=== PATIENT | male | born 1985 | race Two or more races ===

== ENCOUNTER 2017-11-26 20:26 | Emergency (ER) | payer OTHER ==
[~2017-11-26] VITALS: Ht 177.8 cm; Wt 68.0 kg
[~2017-11-26 20:26] MED LIST: ACID REDUCER 1150 MG PO; FAMO40 PO; IBUP600 PO; METPRE4DP PO; OXYACE5T PO; PROM25 PO; Prednisone10 MG PO; Prednisone20 MG PO; RANI150 PO; SUCR1 PO; Ultram50 MG PO; [UNRECOGNIZED DRUG - REMARK]
[2017-11-26] MEDS ORDERED: Vibramycin100 MG PO (22:58)
== END 2017-11-26 23:06 | disposition home or self-care (01) ==
LOC: ER 20:26
DX: S92.331A Displaced fracture of third metatarsal bone, right foot, initial encounter for closed fracture (principal); Z23 Encounter for immunization; F17.200 Nicotine dependence, unspecified, uncomplicated; Z88.1 Allergy status to other antibiotic agents; W22.8XXA Striking against or struck by other objects, initial encounter
CPT/HCPCS: 73630; 90471; 90714; 99283

== ENCOUNTER 2019-08-02 11:04 | Day surgery (SDC) | payer OTHER ==
[~2019-08-02] VITALS: Ht 175.3 cm; Wt 67.6 kg
[~2019-08-02 11:04] MED LIST changes: +KETO10 PO; +TRAM50 PO; +Vibramycin100 MG PO
== END 2019-08-02 14:25 | disposition home or self-care (01) ==
LOC: ORSCSDS 11:04
PROVIDERS: Orthopaedic Surgery
PROC: 0PSH04Z Reposition Right Radius with Internal Fixation Device, Open Approach (ICD-10-PCS; principal; 2019-08-02 11:45)
DX: S52.501A Unspecified fracture of the lower end of right radius, initial encounter for closed fracture (principal); F17.210 Nicotine dependence, cigarettes, uncomplicated
CPT/HCPCS: C1713; J0171; J2250; J2405; J3010; J7120

== ENCOUNTER 2020-10-08 09:28 | Emergency (ER) | payer OTHER ==
[~2020-10-08] VITALS: Ht 177.8 cm; Wt 65.8 kg
== END 2020-10-08 10:57 | disposition home or self-care (01) ==
LOC: ER 09:28
DX: S62.617A Displaced fracture of proximal phalanx of left little finger, initial encounter for closed fracture (principal); F17.200 Nicotine dependence, unspecified, uncomplicated; Z88.1 Allergy status to other antibiotic agents; V00.131A Fall from skateboard, initial encounter; Y93.51 Activity, roller skating (inline) and skateboarding
CPT/HCPCS: 29130; 73140; 99283-25

== ENCOUNTER 2021-05-26 12:08 | Emergency (ER) | payer SELFPAY ==
[~2021-05-26] VITALS: Ht 175.3 cm; Wt 65.8 kg
[2021-05-26] MEDS ORDERED: VENL75ER PO (12:16)
[2021-05-26] MEDS ORDERED: Monodox100 MG PO (12:32)
[2021-05-26] MEDS ORDERED: IBU800 MG PO (12:32)
== END 2021-05-26 13:05 | disposition home or self-care (01) ==
LOC: ER 12:08
DX: L03.211 Cellulitis of face (principal); L02.01 Cutaneous abscess of face; F17.210 Nicotine dependence, cigarettes, uncomplicated; Z88.1 Allergy status to other antibiotic agents
CPT/HCPCS: 99283

== ENCOUNTER 2021-06-13 11:07 | Emergency (ER) | payer OTHER ==
[~2021-06-13] VITALS: Ht 175.3 cm; Wt 68.0 kg
[~2021-06-13 11:07] MED LIST changes: +IBU800 MG PO; +Monodox100 MG PO; +VENL75ER PO
[2021-06-13] MEDS ORDERED: Bactrim Ds Tab1 EACH PO (11:22)
[2021-06-13] MEDS ORDERED: MONDOXYNE NL100 MG PO (11:24)
== END 2021-06-13 11:25 | disposition home or self-care (01) ==
LOC: ER 11:07
DX: L08.9 Local infection of the skin and subcutaneous tissue, unspecified (principal); Z88.1 Allergy status to other antibiotic agents; F17.210 Nicotine dependence, cigarettes, uncomplicated
CPT/HCPCS: 99282

== ENCOUNTER 2022-03-11 09:06 | Emergency (ER) | payer OTHER ==
[~2022-03-11] VITALS: Ht 175.3 cm; Wt 68.0 kg
[~2022-03-11 09:06] MED LIST changes: +Bactrim Ds Tab1 EACH PO; +MONDOXYNE NL100 MG PO
[2022-03-11 10:27] LABS: BASOPHILS ABSOLUTE AUTO 0.03 K/mm3 (0.00-0.23); BASOPHILS PERCENT AUTO 0 % (0-2); EOSINOPHILS ABSOLUTE AUTO 0.06 K/mm3 (0.00-0.68); EOSINOPHILS PERCENT AUTO 1 % (0-6); Hematocrit 44.1 % (37.0-53.0); Hemoglobin 14.9 g/dL (13.5-17.5); IMMATURE GRAN ABSOLUTE AUTO 0.02 K/mm3 (0.00-0.10); IMMATURE GRAN PERCENT AUTO 0 % (0-1); LYMPHOCYTES ABSOLUTE AUTO 0.97 K/mm3 (0.84-5.20); LYMPHOCYTES PERCENT AUTO 9 % (21-46); MONOCYTES ABSOLUTE AUTO 0.66 K/mm3 (0.16-1.47); MONOCYTES PERCENT AUTO 6 % (4-13); Mean Corpuscular HGB 32.8 pg (26.0-34.0); Mean Corpuscular HGB Conc 33.8 g/dL (31.5-36.5); Mean Corpuscular Volume 97 fL (80-100); Mean Platelet Volume 11.2 fL (9.1-12.4); NEUTROPHILS ABSOLUTE AUTO 8.75 K/mm3 (1.96-9.15); NEUTROPHILS PERCENT AUTO 83 % (41-73); Platelet Count 232 K/mm3 (150-400); RDW Coefficient Variation 11.4 % (11.7-14.2); Red Blood Cell Count 4.54 M/mm3 (4.30-5.90); White Blood Cell Count 10.49 K/mm3 (4.00-11.30)
[2022-03-11 10:48] LABS: Albumin, Blood 3.8 g/dL (3.4-5.0); Albumin/Globulin Ratio 1.1 (0.8-1.8); Bilirubin, Total 0.3 mg/dL (0.1-1.0); Bun/Creatinine Ratio 9.2 (12.0-20.0); Creatinine, Blood 0.76 mg/dL (0.60-1.20); Globulin, Blood 3.4 g/dL (2.2-4.0); Potassium, Blood 3.8 mmol/L (3.5-5.5); Total Protein, Blood 7.2 g/dL (6.4-8.2)
== END 2022-03-11 12:41 | disposition home or self-care (01) ==
LOC: ER 09:06
PROVIDERS: Emergency Medicine
DX: R13.10 Dysphagia, unspecified (principal); F17.210 Nicotine dependence, cigarettes, uncomplicated
CPT/HCPCS: 36415; 71046; 80053; 83690; 84484; 85025; 93005; 93010; 99284-25; A9270

== ENCOUNTER → 2022-05-25 | Outpatient (CLI) | payer OTHER | END | disposition home or self-care (01) | LOC: LAB SHORT 11:33 → LAB 11:33 | DX: H60.91 Unspecified otitis externa, right ear (principal) | CPT/HCPCS: 87070; 87205 ==